=== PATIENT | female | born 1955 | race African-American/Black ===

== ENCOUNTER 2017-01-10 06:48 | Emergency (ER) | payer MEDICAID ==
[~2017-01-10] VITALS: Ht 154.9 cm; Wt 104.0 kg
[~2017-01-10 06:48] MED LIST: ENAL10TA71; HYDR-3515; LEVO25CA2; OMEP20CA4; RANI150C12
[2017-01-10 09:22] VITALS: BP 143/75
== END 2017-01-10 10:46 | disposition home or self-care (01) ==
LOC: ER 10:00
DX: M26.602 Left temporomandibular joint disorder, unspecified (principal); I10 Essential (primary) hypertension; E03.9 Hypothyroidism, unspecified; Z88.0 Allergy status to penicillin; Z79.899 Other long term (current) drug therapy
CPT/HCPCS: 99283; Z7610

== ENCOUNTER 2019-01-30 05:43 | Emergency (ER) | payer MEDICAID ==
[~2019-01-30] VITALS: Ht 152.4 cm; Wt 104.0 kg
[2019-01-30] MEDS ORDERED: ACETAMINOPHEN 325MG TABLET PO ONE (06:30)
[2019-01-30] MEDS ORDERED: METHOCARBAMOL 500MG TABLET PO ONE (06:30)
[2019-01-30] MEDS ORDERED: TRAMADOL 50MG TABLET PO ONE (07:45)
[2019-01-30 08:41] VITALS: BP 143/92
== END 2019-01-30 08:46 | disposition home or self-care (01) ==
LOC: ER 05:43
DX: M54.6 Pain in thoracic spine (principal); R05 Cough; D64.9 Anemia, unspecified; I10 Essential (primary) hypertension; E03.9 Hypothyroidism, unspecified; Z98.890 Other specified postprocedural states; Z88.0 Allergy status to penicillin; Z88.6 Allergy status to analgesic agent
CPT/HCPCS: 71046; 99284